=== PATIENT | female | born 1980 | race Caucasian/White ===

== ENCOUNTER → 2017-02-14 13:55 | Outpatient (CLI) | payer MEDICAID ==
[2014-11-26 10:03] VITALS: BMI 20.2
[~2017-02-14 13:55] MED LIST: ESTRACE2 MG PO; HYDROCODONE-APA1 TAB PO; VITAMIN E400 UNI2 PO; XANAX0.5 MG PO
== END | disposition home or self-care (01) ==
LOC: D.MRI 13:55
DX: S43.491A Other sprain of right shoulder joint, initial encounter (principal)